=== PATIENT | female | born 2000 | race Caucasian/White ===

== ENCOUNTER 2021-05-17 10:35 | Inpatient (IN) | payer MEDICAID ==
[~2021-05-17] VITALS: Ht 165.1 cm; Wt 45.0 kg
[2021-05-17] MEDS ORDERED: diazepam 5mg tablet PO ONE (10:50)
[2021-05-17] MEDS ORDERED: venlafaxine XR 75mg capsule (Q24H) PO ONE (10:50)
--- NOTE | 2021-05-17 10:53 | NUR ---
STAFF CAN GIVE INFORMATION REGARDING PTS STATUS TO LILY WASSERMAN; (C) [phone]
--- NOTE | 2021-05-17 10:55 | NUR ---
PT PASSWORD IS: [employer]
[2021-05-17 11:11] LABS: MONOCYTES # (AUTO) 0.6 X10'3 (0-0.9); NEUTROPHILS # (AUTO) 5.4 X10'3 (1.8-7.7); WHITE BLOOD COUNT 8.1 X10'3 (4.5-11.0)
[2021-05-17 11:13] LABS: BASOPHILS % (AUTO) 0.4 % (0-1); EOSINOPHILS % (AUTO) 0 % (0-6); HEMATOCRIT 43.9 % (35.0-45.0); HEMOGLOBIN 14.8 g/dl (12.0-16.0); LYMPHOCYTES # (AUTO) 2.2 X10'3 (1.1-4.8); LYMPHOCYTES % (AUTO) 26.6 % (21-51); MEAN CORPUSCULAR HEMOGLOBIN 30.9 PG (27.0-31.0); MEAN CORPUSCULAR HGB CONC 33.6 g/dL (33.0-36.5); MEAN CORPUSCULAR VOLUME 91.8 FL (78-98); MONOCYTES % (AUTO) 7.2 % (2-12); NEUTROPHILS % (AUTO) 65.8 % (42-75); PLATELET COUNT 734 X10'3 (140-440); RED BLOOD COUNT 4.79 X10'6 (4.20-5.60); RED CELL DISTRIBUTION WIDTH 13.1 % (11.5-14.5)
[2021-05-17 11:27] LABS: ALANINE AMINOTRANSFERASE 27 U/L (12-78); ALBUMIN 4.9 G/DL (3.4-5.0); ALBUMIN/GLOBULIN RATIO 1.2 (1.1-1.5); ALKALINE PHOSPHATASE 99 IU/L (46-116); ANION GAP 12 (8-16); ASPARTATE AMINO TRANSFERASE 20 U/L (10-37); BILIRUBIN,TOTAL 1.5 MG/DL (0.1-1.0); BLOOD UREA NITROGEN 11 MG/DL (7-18); BUN/CREATININE RATIO 18.3 (6.6-38.0); CALCIUM 9.1 MG/DL (8.5-10.1); CHLORIDE 104 MMOL/L (99-107); GLUCOSE 97 MG/DL (70-104); POTASSIUM 3.9 MMOL/L (3.5-5.1); SODIUM 143 MMOL/L (135-145); TOTAL CARBON DIOXIDE 26.8 MMOL/L (24-32); eGFR > 90 ML/MIN
[2021-05-17 11:29] LABS: URINE HCG NEGATIVE (NEG)
[2021-05-17 11:31] LABS: COLOR,URINE STRAW (Yellow); UA COLLECTION TYPE CLN CATCH MIDSTREAM
[2021-05-17 11:32] LABS: CLARITY,URINE CLOUDY (Clear)
[2021-05-17 11:33] LABS: GLUCOSE, URINE NEGATIVE (Neg); KETONES,URINE NEGATIVE (Neg); LEUKOCYTE ESTERASE ,URINE TRACE (Neg); NITRITES, URINE POSITIVE (Neg); OCCULT BLOOD,URINE MODERATE (Neg); PROTEIN,URINE TRACE mg/dl (Neg); UROBILINOGEN,URINE 0.2 E.U/dL (0.2-1.0)
[2021-05-17 11:40] LABS: URINE AMPHETAMINE SCREEN NEGATIVE (Neg); URINE BARBITUATE SCREEN NEGATIVE (Neg); URINE BENZODIAZEPINES SCREEN NEGATIVE (Neg); URINE CANNABINOID SCREEN POSITIVE (Neg); URINE COCAINE SCREEN NEGATIVE (Neg); URINE METHADONE SCREEN NEGATIVE (Neg); URINE OPIATE SCREEN NEGATIVE (Neg); URINE PHENCYCLIDINE SCREEN NEGATIVE (Neg)
[2021-05-17 11:42] LABS: ETHANOL < 0.010 GM/DL (0.0-0.010)
[2021-05-17 11:44] LABS: SQUAMOUS EPITHELIAL CELL,UR MANY /LPF (FEW); TRANSITIONAL EPI CELLS,URINE FEW /HPF
[2021-05-17 11:45] LABS: RBC,URINE 0-2 /HPF (0-2)
[2021-05-17 11:46] LABS: BACTERIA,URINE 3+ /HPF (Neg); WBC CLUMPS,URINE FEW /HPF (NEGATIVE)
--- NOTE | 2021-05-17 19:30 | NUR ---
Pt considers Nay Liu her mother wants her present when [facility] evaluates her.
--- NOTE | 2021-05-17 20:09 | NUR ---
Pt resting quietly at this time. Visitor left about an hour ago.
[2021-05-17] MEDS ORDERED: diphenhydrAMINE 25mg capsule PO ONE (21:15)
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
--- NOTE | 2021-05-18 06:33 | NUR ---
Received patient sleeping comfortably, respirations even and unlabored.
[2021-05-18] MEDS ORDERED: GUAN1TAB PO (07:38)
[2021-05-18] MEDS ORDERED: VENL150C58 PO (07:38)
[2021-05-18] MEDS ORDERED: DIAZ5TAB5 PO (07:38)
--- NOTE | 2021-05-18 08:07 | NUR ---
Pt up eating breakfast, mother at bedside.
[2021-05-18] MEDS ORDERED: venlafaxine XR 75mg capsule (Q24H) PO SCH (08:46)
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
--- NOTE | 2021-05-18 11:34 | NUR ---
Pt sitting up in bed playing cards with "mom." Pt is calm.
--- NOTE | 2021-05-18 13:40 | NUR ---
Pt awake, calm. Pt's boyfriend and his mother at bedside. Pt ate minimal amount of her lunch.
--- NOTE | 2021-05-18 15:04 | NUR ---
Pt sitting up in bed coloring. Pt is plesant, but affect is incongruent with situation. Pt smiles during all questions and assessments. Assembly Worker will speak with provider regarding addtion of Ensure or protein shake to pt's diet (pt is lactose intolerant.)
[2021-05-18] MEDS ORDERED: ciprofloxacin 250mg tablet PO ONE (15:15)
--- NOTE | 2021-05-18 15:19 | NUR ---
Pt has UTI, received order for Cipro 500mg also received order for high protein Ensure.
--- NOTE | 2021-05-18 17:15 | NUR ---
Pt awake sitting in high fowlers position, coloring. No distress noted.
[2021-05-18] MEDS: lactose-reduced food (Ensure High Protein) 237ml bottle PO SCH (18:00)
--- NOTE | 2021-05-18 19:49 | NUR ---
The patient is pleasant and calm. She is expecting to transfer to [facility] later on tonight.
[2021-05-18] MEDS: lactobacillus rhamnosus 10,000 MMU CELLS/CAPSULE PO SCH (19:59)
[2021-05-18] MEDS ORDERED: NICOTINE POLACRILEX 2 MG LOZENGE BC PRN (20:05)
[2021-05-18] MEDS ORDERED: acetaminophen 325mg tablet PO PRN (20:05)
[2021-05-18] MEDS ORDERED: loperamide 2mg capsule PO PRN (20:05)
[2021-05-18] MEDS ORDERED: magnesium hydroxide 30ml (MOM) UD suspension PO PRN (20:05)
[2021-05-18] MEDS ORDERED: mag hydrox/Alum hydrox/simeth 30ml oral suspension PO PRN (20:05)
[2021-05-18 21:23] VITALS: BP 115/72
[2021-05-18] MEDS ORDERED: PRAZ5CAP2 PO (21:42)
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
[2021-05-18] MEDS: LORazepam 1 MG tablet PO PRN (21:47)
[2021-05-19] MEDS: traZODone 50mg tablet PO PRN ×2 (00:24→21:00)
[2021-05-19] MEDS: lactobacillus rhamnosus 10,000 MMU CELLS/CAPSULE PO SCH ×2 (07:21→21:00)
[2021-05-19] MEDS: acetaminophen 325mg tablet PO PRN (07:24)
[2021-05-19 08:00] VITALS: BP 101/69
[2021-05-19] MEDS ORDERED: guanFACINE 1 mg tablet PO SCH (08:00)
[2021-05-19] MEDS ORDERED: nicotine 21mg patch - 24 hr TD SCH (08:00)
[2021-05-19] MEDS: lactose-reduced food (Ensure High Protein) 237ml bottle PO SCH (08:29)
[2021-05-19 09:31] LABS: CHOL/HDL RATIO 2.6 (0.00-4.99); CHOLESTEROL 172 MG/DL (0-200); HDL CHOLESTEROL 65 MG/DL (35-60); LDL CHOLESTEROL 104 MG/DL (50-100); TRIGLYCERIDES 49 MG/DL (20-135)
[2021-05-19 09:43] LABS: HEMOGLOBIN A1C 5.2 % (4.5-6.2)
[2021-05-19] MEDS: ciprofloxacin 250mg tablet PO SCH ×2 (10:31→21:01)
--- NOTE | 2021-05-19 11:50 | NUR ---
Malnutrition Consult: Pt admit DX SI and hx suicide attempts, anorexia, and bulimia per EMR. BMI 16.5 via standing scaled wt this admit w/ no prior wt hx. Pt appears WD/WN per ER note. RD d/w RN who reports pt appears small in stature w/ no visible signs of muscle/fat wasting present and has not exhibited signs of anorexia/bulimia this admit. Pt PO 25-50% breakfast this AM w/ 100% ensure high protein ordered by . Current PO documented 100% breakfast this AM though error actually 25-50% per RN. MD agreeable w/ RD recs for ensure enlive ONS for additional kcals. Pt now to receive ensure enlive TIDWM instead of ensure high protein; dietary notified. Pt has normal strength, no edema/wounds, and no prior wt hx may maintain underweight status at baseline. Does not meet minimum malnutrition criteria at this time. Will monitor for further nutrition intervention needs this admit. Addendum: 05/19/21 at [address] Amended: Links added.
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
[2021-05-19] MEDS: lactose-reduced food (Ensure Enlive) - 237ml bottle PO SCH ×2 (13:04→17:59)
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
[2021-05-19 20:00] VITALS: BP 120/66
[2021-05-19] MEDS ORDERED: lithium carbonate 150mg capsule PO SCH (21:00)
[2021-05-19] MEDS: prazosin 1mg capsule PO SCH (21:00)
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
[2021-05-20] MEDS ORDERED: lurasidone 20mg tablet PO SCH (07:30)
[2021-05-20 08:00] VITALS: BP 109/74
[2021-05-20] MEDS: lactose-reduced food (Ensure Enlive) - 237ml bottle PO SCH ×3 (08:00→17:53)
--- NOTE | 2021-05-20 08:04 | NUR ---
Held skyler Montoya per Dr Greco's instructions.
[2021-05-20] MEDS: lactobacillus rhamnosus 10,000 MMU CELLS/CAPSULE PO SCH ×2 (08:15→20:56)
[2021-05-20] MEDS: LORazepam 1 MG tablet PO PRN (08:58)
[2021-05-20] MEDS: acetaminophen 325mg tablet PO PRN ×2 (09:00→21:12)
[2021-05-20] MEDS: ciprofloxacin 250mg tablet PO SCH ×2 (09:59→20:58)
--- NOTE | 2021-05-20 10:14 | NUR ---
Pt attended group today. We talked about reframing thoughts utilizing a picture where they had to write down what thoughts there were struggling with today. Patients then constructed Vision Pages/Collages with inspiring words and pictures to work toward rewire these thoughts into positive affirmations. Pt. engaged well in the group today. She jumped right into the exercise that was presented. She wrote down the thoughts she was having around how she feels she is a burden to those she loves due to her issues and that she missed her dad and sister. She worries about them and how they are doing. From there Pt. Was able to put together a collage with pictures and words that inspired her. She was excited to share her work with the group sharing how she was in process with attempting to change her thoughts. Her thought content and thought process was WNL. She was alert and oriented X 4. Her demeanor was calm and compliant. Tabatha Orozco LCSW
--- NOTE | 2021-05-20 13:18 | NUR ---
Property Management Accountant met w/pt, provided informed consent and engaged her in completing a psychosocial assessment. MSE A/O x4 TP-linear TC-focused on traumatic events of the past, SI, denies any plans, denies HI/AH/VH/delusions Mood-elevated Affect- incongruent w/current situation Bxs- cooperative & quite "open" lack safe boundaries Plan: Clinician will provide EMDR while pt is here. Anna Marcelo LCSW Addendum: 05/20/21 at 1322 by Anna Marcelo SS Amended: Links added.
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
--- NOTE | 2021-05-20 17:06 | NUR ---
Group Art Tx continued: Patient was stable and motivated before, during and after group. Patient was cheerful, animated and willing to risk and share her feeling opposite drawing and journaling. Her two opposites were Scared V.S. Confident. Her feeling opposites were related to relationship issues with a friend and her mother. Patient was interactive w/ her peers and has been spending much of her leisure time in the group room working on creative projects w/ her [facility] roomate. Ching Hawley M.A., [facility] #[id number] [facility], Art Therapist Addendum: 05/20/21 at 1709 by Ching Hawley SS Amended: Links added. Addendum: 05/20/21 at 1714 by Ching WARD Correction re: the relationship issues were more directed at her issues with PTSD her fears. Patient was able to address her support system she feels confident with. Ching Hawley M.A., [facility] #[id number] [facility], Art Therapist
[2021-05-20 19:00] VITALS: BP 102/73
[2021-05-20] MEDS: prazosin 1mg capsule PO SCH (20:56)
[2021-05-20] MEDS: traZODone 50mg tablet PO PRN ×2 (20:56→21:57)
[2021-05-20] MEDS ORDERED: lithium carbonate 150mg capsule PO SCH (21:00)
[2021-05-20] MEDS: hydrOXYzine 25 MG tablet PO PRN ×2 (21:10→21:57)
[2021-05-20] MEDS ORDERED: ondansetron 4mg rapidly disintigrating tab PO ONE (22:35)
[2021-05-20 22:42] VITALS: BP 104/64
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
[2021-05-21] MEDS: lactobacillus rhamnosus 10,000 MMU CELLS/CAPSULE PO SCH ×2 (07:45→20:45)
[2021-05-21] MEDS ORDERED: LORazepam 1 MG tablet PO ONE (07:45)
[2021-05-21 08:00] VITALS: BP 115/71
[2021-05-21] MEDS: lactose-reduced food (Ensure Enlive) - 237ml bottle PO SCH ×4 (08:16→18:23)
[2021-05-21] MEDS: ciprofloxacin 250mg tablet PO SCH ×2 (10:23→20:45)
--- NOTE | 2021-05-21 12:34 | NUR ---
1:1-EMDR Presenting Issues: Pt's assessment indicates pt's impaired by sxs associated w/C-PTSD (Complex-PTSD), and unstable attachment. Pt had agreed to try EMDR-Safe Protocol. Interventions: EMDR Phase 1 Clinician met w/pt and engage her in completing EMDR Pahse 1. Per data, pt longs for the security of a family, emotional intimacy with friends & herself. Pt hopes to be able to determine if it is safe to reconnect w/father. Clinician introduced strategies for scaling internal distress (0-10; 0=neutral/no distress & 10=most distress imaginable), engaged pt in practicing scaling her distress, instructed pt to use her calm breaths when distress is at a 5 to see if she can bring it down to a 4 or 3. For distress levels higher than a 5 or when the calm breaths was not helpful, pt will seek out her RN for additional support. Plan: We will complete Phase 1 & 2, and begin Phase 3 on Monday. Clinician will ask the weekend SW to check in w/pt and provide support for pt to process any distressing memories that she experiences outside of EMDR session. Anna Tapia Addendum: 05/21/21 at 1255 by Anna WARD Amended: Links added.
[2021-05-21 12:50] VITALS: BP 125/71
[2021-05-21] MEDS ORDERED: clonazePAM 0.5mg tablet PO ONE (12:50)
[2021-05-21] MEDS: acetaminophen 325mg tablet PO PRN (12:56)
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
[2021-05-21 20:00] VITALS: BP 99/67
[2021-05-21] MEDS: traZODone 50mg tablet PO PRN ×2 (20:45→22:37)
[2021-05-21] MEDS: clonazePAM 0.5mg tablet PO SCH (20:45)
[2021-05-21] MEDS: prazosin 1mg capsule PO SCH (20:45)
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
[2021-05-22 08:00] VITALS: BP 108/65
[2021-05-22] MEDS: lactose-reduced food (Ensure Enlive) - 237ml bottle PO SCH ×3 (08:00→18:00)
[2021-05-22] MEDS: lactobacillus rhamnosus 10,000 MMU CELLS/CAPSULE PO SCH ×2 (08:49→20:55)
[2021-05-22] MEDS: clonazePAM 0.5mg tablet PO SCH ×2 (08:50→20:55)
[2021-05-22] MEDS: ciprofloxacin 250mg tablet PO SCH ×2 (11:47→20:56)
[2021-05-22] MEDS ORDERED: venlafaxine XR 37.5mg cap (Q24H) PO ONE (12:20)
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
[2021-05-22] MEDS: acetaminophen 325mg tablet PO PRN (17:04)
[2021-05-22 19:35] VITALS: BP 116/64
[2021-05-22] MEDS: traZODone 50mg tablet PO PRN ×2 (20:56→22:11)
[2021-05-22] MEDS: prazosin 1mg capsule PO SCH (20:56)
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
[2021-05-23 08:00] VITALS: BP 105/67
[2021-05-23] MEDS: venlafaxine XR 75mg capsule (Q24H) PO SCH (08:39)
[2021-05-23] MEDS: lactobacillus rhamnosus 10,000 MMU CELLS/CAPSULE PO SCH ×2 (08:39→20:17)
[2021-05-23] MEDS: clonazePAM 0.5mg tablet PO SCH ×2 (08:40→20:17)
[2021-05-23] MEDS: lactose-reduced food (Ensure Enlive) - 237ml bottle PO SCH ×2 (08:46→13:00)
[2021-05-23] MEDS: ciprofloxacin 250mg tablet PO SCH ×2 (10:13→21:58)
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
--- NOTE | 2021-05-23 14:45 | NUR ---
Initial: Pt admit DX SI and hx suicide attempts, anorexia, and bulimia per EMR. Pt w/ variable intake on Regular diet though meeting needs. Avg intake 70% x 12 meals and 52% x 12 ONS. LBM 05/21 receiving routine Lactulose. No nutrition intervention implemented at this time, will continue to monitor. Recs: 1. Continue Regular diet as tolerated 2. Ensure Enlive TID per MD 3. Bowel care per rx 4. Weekly wts Addendum: 05/23/21 at [address] Amended: Links added.
[2021-05-23] MEDS: prazosin 1mg capsule PO SCH (20:17)
[2021-05-23 20:39] VITALS: BP 109/70
[2021-05-23] MEDS: traZODone 50mg tablet PO PRN (21:58)
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
[2021-05-24 08:00] VITALS: BP 98/72
[2021-05-24] MEDS: lactose-reduced food (Ensure Enlive) - 237ml bottle PO SCH ×3 (08:00→18:00)
[2021-05-24] MEDS: clonazePAM 0.5mg tablet PO SCH ×2 (08:10→21:32)
[2021-05-24] MEDS: lactobacillus rhamnosus 10,000 MMU CELLS/CAPSULE PO SCH ×2 (08:10→21:32)
[2021-05-24] MEDS: venlafaxine XR 75mg capsule (Q24H) PO SCH (08:10)
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
[2021-05-24] MEDS: ciprofloxacin 250mg tablet PO SCH (09:45)
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
[2021-05-24 20:00] VITALS: BP 114/85
[2021-05-24] MEDS ORDERED: traZODone 150mg tablet PO SCH (21:00)
[2021-05-24] MEDS: prazosin 1mg capsule PO SCH (21:32)
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
[2021-05-25 08:00] VITALS: BP 110/64
[2021-05-25] MEDS: lactose-reduced food (Ensure Enlive) - 237ml bottle PO SCH ×3 (08:00→18:00)
[2021-05-25] MEDS: lactobacillus rhamnosus 10,000 MMU CELLS/CAPSULE PO SCH ×2 (08:06→20:00)
[2021-05-25] MEDS: clonazePAM 0.5mg tablet PO SCH ×2 (08:07→21:35)
[2021-05-25] MEDS: venlafaxine XR 75mg capsule (Q24H) PO SCH (08:07)
[2021-05-25] MEDS: acetaminophen 325mg tablet PO PRN (12:34)
--- NOTE | 2021-05-25 14:15 | NUR ---
Pt. attended group today. We talked about Communication today focusing on how to utilize I messages. This Marketing Program Manager shared how to create an I message and then we practiced writing them on the board. We also did a drawing of their three favorite animals, the Pt. had to write out what characteristic they like about each animal and create a drawing of a new animal. Pt. engaged well in the group. Her mood was bright with a full range of affect. She was alert and oriented X 4. Her thought content and thought process was WNL. She shared an example of an I message and did a great job creating one for her situation that she is struggling with. She also engaged in the activity and shared her animal qualities with the group. She appears to enjoy socializing in the group and does a good job connecting with others and synthesizing the information. Tabatha Orozco LCSW
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
--- NOTE | 2021-05-25 16:46 | NUR ---
Art Tx Continued: Patient was able to attend the group following her individual session w/ her social service manager, Anna Diaz. Patient was able to follow all directives, freely expressing herself and completing her sentence completion as well. Patient was able to gather some insight from both her individual session and the art therapy. Her process noted " I am sad to leave behind my family ... I need to keep walking and not look behind." Patients art work reflected her current process and an ability to begin looking out at new options as she continues to heal from a traumatic history. Patient was interactive with other patients. Patient continues to reflect a positive attitude towards her treatment and future goals. *Please refer to the [facility] Case Notes for entire overview. Ching Hawley MA, DIVORCE LAWYER #[id number] [facility], Art Therapist Addendum: 05/25/21 at 1715 by Ching Hawley SS Amended: Links added.
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
[2021-05-25 19:57] VITALS: BP 112/71
[2021-05-25] MEDS: prazosin 1mg capsule PO SCH (21:34)
[2021-05-25] MEDS: traZODone 150mg tablet PO SCH (21:35)
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
[2021-05-26 07:26] VITALS: BP 113/67
[2021-05-26] MEDS: lactobacillus rhamnosus 10,000 MMU CELLS/CAPSULE PO SCH ×2 (07:51→20:07)
[2021-05-26] MEDS: clonazePAM 0.5mg tablet PO SCH ×2 (07:51→20:07)
[2021-05-26] MEDS: venlafaxine XR 75mg capsule (Q24H) PO SCH (07:52)
[2021-05-26] MEDS: lactose-reduced food (Ensure Enlive) - 237ml bottle PO SCH ×3 (08:22→18:20)
--- NOTE | 2021-05-26 09:36 | NUR ---
Pt. attended group today. We talked about how to recognize when you are in a Co-dependent relationship. The Pts. did a Checklist about what symptoms of codependency they may have. We discussed seven ways to avoid codependency. Pt. engaged well in the group. She was very interested in the topic and shared pertinent examples, she shared appropriately. Her thought content and thought process were WNL. She was alert and oriented X 4. She shared that she struggles the most with setting boundaries and saying no to people. She talked a lot about her relationship with her father. Her demeanor was calm and compliant. Her mood was bright with a full range of affect. She asked for the extra paperwork to do it for homework to bring back to group tomorrow. Tabatha Orozco LCSW
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
[2021-05-26 19:37] VITALS: BP 109/66
[2021-05-26] MEDS ORDERED: heparin, porcine 5000 units/ml vial SQ SCH (20:00)
[2021-05-26] MEDS: traZODone 150mg tablet PO SCH (20:06)
[2021-05-26] MEDS: prazosin 1mg capsule PO SCH (20:07)
--- NOTE | 2021-05-26 20:38 | NUR ---
New order for Heparin and protonix for patient ordered by Dr Brandt, reviewed with Dr Greco and he ordered to D/C meds.
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
[2021-05-27] MEDS ORDERED: pantoprazole 40mg Tablet.DR PO SCH (07:30)
[2021-05-27] MEDS: venlafaxine XR 75mg capsule (Q24H) PO SCH (07:51)
[2021-05-27] MEDS: lactobacillus rhamnosus 10,000 MMU CELLS/CAPSULE PO SCH ×2 (07:51→20:28)
[2021-05-27] MEDS: clonazePAM 0.5mg tablet PO SCH ×2 (07:52→20:29)
[2021-05-27 08:00] VITALS: BP 91/64
[2021-05-27] MEDS: lactose-reduced food (Ensure Enlive) - 237ml bottle PO SCH ×3 (08:00→18:03)
[2021-05-27 09:23] LABS: BASOPHILS % (AUTO) 0.2 % (0-1); EOSINOPHILS % (AUTO) 0 % (0-6); HEMATOCRIT 38.4 % (35.0-45.0); HEMOGLOBIN 13.1 g/dl (12.0-16.0); LYMPHOCYTES # (AUTO) 1.5 X10'3 (1.1-4.8); LYMPHOCYTES % (AUTO) 25.9 % (21-51); MEAN CORPUSCULAR HEMOGLOBIN 30.8 PG (27.0-31.0); MEAN CORPUSCULAR HGB CONC 34.2 g/dL (33.0-36.5); MEAN CORPUSCULAR VOLUME 90.3 FL (78-98); MEAN PLATELET VOLUME 6.1 FL (7.4-10.4); MONOCYTES # (AUTO) 0.5 X10'3 (0-0.9); MONOCYTES % (AUTO) 8.6 % (2-12); NEUTROPHILS # (AUTO) 3.8 X10'3 (1.8-7.7); NEUTROPHILS % (AUTO) 65.3 % (42-75); PLATELET COUNT 570 X10'3 (140-440); RED BLOOD COUNT 4.26 X10'6 (4.20-5.60); RED CELL DISTRIBUTION WIDTH 12.4 % (11.5-14.5); WHITE BLOOD COUNT 5.8 X10'3 (4.5-11.0)
[2021-05-27 09:39] LABS: ALANINE AMINOTRANSFERASE 18 U/L (12-78); ALBUMIN 4.2 G/DL (3.4-5.0); ALBUMIN/GLOBULIN RATIO 1.1 (1.1-1.5); ALKALINE PHOSPHATASE 70 IU/L (46-116); ANION GAP 7 (8-16); ASPARTATE AMINO TRANSFERASE 16 U/L (10-37); BILIRUBIN,TOTAL 1.5 MG/DL (0.1-1.0); BLOOD UREA NITROGEN 17 MG/DL (7-18); BUN/CREATININE RATIO 20.5 (6.6-38.0); CALCIUM 8.6 MG/DL (8.5-10.1); CHLORIDE 105 MMOL/L (99-107); CREATININE 0.83 MG/DL (0.40-0.90); GLUCOSE 101 MG/DL (70-104); POTASSIUM 3.9 MMOL/L (3.5-5.1); SODIUM 143 MMOL/L (135-145); TOTAL CARBON DIOXIDE 30.6 MMOL/L (24-32); TOTAL PROTEIN 7.9 G/DL (6.4-8.2); eGFR 87 ML/MIN
--- NOTE | 2021-05-27 14:09 | NUR ---
We talked about Boundaries, the different kinds and how to communicate our boundaries to others. Each pt. did a written activity to help them identify a person/situation they struggle to set boundaries in. Pt. engaged well in the group. She completed the written activity. She shared that she had had a distressing conversation last night with her family. They got her 6 year old niece to call so she would take the call. Then her dad and sister where prompting her niece with what to say to Pt. This was very upsetting for Pt as she has told her family not to contact her. She does not feel safe with them and that they have her best interests at heart. Pt. appeared angry today in her demeanor but it was directed toward her family. She was able to process her feelings in group which appeared helpful to her. She was alert and oriented X 4. Her thought content and thought process was WNL. Tabatha Orozco LCSW
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
[2021-05-27 20:00] VITALS: BP 103/68
[2021-05-27] MEDS: prazosin 1mg capsule PO SCH (20:28)
[2021-05-27] MEDS: traZODone 150mg tablet PO SCH (20:28)
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
[2021-05-28 08:00] VITALS: BP 108/68
[2021-05-28] MEDS: lactose-reduced food (Ensure Enlive) - 237ml bottle PO SCH ×3 (08:55→17:47)
[2021-05-28] MEDS: clonazePAM 0.5mg tablet PO SCH (08:55)
[2021-05-28] MEDS: lactobacillus rhamnosus 10,000 MMU CELLS/CAPSULE PO SCH ×2 (08:55→20:16)
[2021-05-28] MEDS: venlafaxine XR 75mg capsule (Q24H) PO SCH (08:55)
[2021-05-28 14:46] LABS: CLARITY,URINE SLIGHTLY CLOUDY (Clear); COLOR,URINE YELLOW (Yellow); GLUCOSE, URINE NEGATIVE (Neg); KETONES,URINE NEGATIVE (Neg); PH,URINE 7.5 (4.8-8.0); UA COLLECTION TYPE CLN CATCH MIDSTREAM
[2021-05-28 14:47] LABS: BACTERIA,URINE 2+ /HPF (Neg); LEUKOCYTE ESTERASE ,URINE NEGATIVE (Neg); MUCUS STRANDS NONE SEEN /LPF (Neg); NITRITES, URINE NEGATIVE (Neg); OCCULT BLOOD,URINE NEGATIVE (Neg); PROTEIN,URINE TRACE mg/dl (Neg); RBC,URINE NONE SEEN /HPF (0-2); SQUAMOUS EPITHELIAL CELL,UR MODERATE /LPF (FEW); UROBILINOGEN,URINE 0.2 E.U/dL (0.2-1.0); WBC,URINE 0-4 /HPF (0-4)
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
[2021-05-28] MEDS ORDERED: LORazepam 1 MG tablet PO ONE (17:45)
[2021-05-28 20:00] VITALS: BP 117/75
[2021-05-28] MEDS: traZODone 150mg tablet PO SCH (20:16)
[2021-05-28] MEDS: clonazePAM 1mg tablet PO SCH ×2 (20:16→20:17)
[2021-05-28] MEDS: prazosin 1mg capsule PO SCH (20:16)
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
[2021-05-29] MEDS: lactobacillus rhamnosus 10,000 MMU CELLS/CAPSULE PO SCH ×2 (07:26→19:46)
[2021-05-29] MEDS: clonazePAM 1mg tablet PO SCH ×3 (07:26→20:34)
[2021-05-29] MEDS: venlafaxine XR 75mg capsule (Q24H) PO SCH (07:26)
[2021-05-29 08:00] VITALS: BP 114/70
[2021-05-29] MEDS: lactose-reduced food (Ensure Enlive) - 237ml bottle PO SCH ×3 (08:00→17:44)
[2021-05-29] MEDS: fluconazole 100mg tablet PO SCH (13:32)
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
[2021-05-29] MEDS: lurasidone 20mg tablet PO SCH (17:22)
[2021-05-29 19:46] VITALS: BP 117/83
[2021-05-29] MEDS: traZODone 150mg tablet PO SCH (20:33)
[2021-05-29] MEDS: prazosin 1mg capsule PO SCH (20:34)
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
[2021-05-30] MEDS: lactose-reduced food (Ensure Enlive) - 237ml bottle PO SCH ×3 (08:00→18:00)
[2021-05-30 08:02] VITALS: BP 94/58
[2021-05-30] MEDS: lactobacillus rhamnosus 10,000 MMU CELLS/CAPSULE PO SCH ×2 (08:17→09:02)
[2021-05-30] MEDS: venlafaxine XR 75mg capsule (Q24H) PO SCH (09:02)
[2021-05-30] MEDS: clonazePAM 1mg tablet PO SCH ×3 (09:02→20:15)
[2021-05-30] MEDS: fluconazole 100mg tablet PO SCH (09:03)
[2021-05-30] MEDS: acetaminophen 325mg tablet PO PRN (11:34)
--- NOTE | 2021-05-30 13:48 | NUR ---
Reassessment: Pt w/ variable intake on Regular diet though meeting needs. Avg intake 50-75% of meals and mostly 100% of ONS. LBM 05/28. No nutrition intervention implemented at this time, will continue to monitor. Recs: 1. Continue Regular diet as tolerated 2. Ensure Enlive TID per MD 3. Bowel care per rx 4. Weekly wts Addendum: 05/30/21 at [address] Amended: Links added.
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
[2021-05-30] MEDS: miconazole nitrate 28.35 gm derm cream TP SCH ×2 (17:00→20:00)
[2021-05-30] MEDS: lurasidone 20mg tablet PO SCH (17:38)
[2021-05-30 18:51] LABS: BASOPHILS % (AUTO) 0.2 % (0-1); EOSINOPHILS % (AUTO) 0 % (0-6); HEMATOCRIT 36.1 % (35.0-45.0); HEMOGLOBIN 12.8 g/dl (12.0-16.0); LYMPHOCYTES # (AUTO) 2.1 X10'3 (1.1-4.8); LYMPHOCYTES % (AUTO) 23.7 % (21-51); MEAN CORPUSCULAR HEMOGLOBIN 31.7 PG (27.0-31.0); MEAN CORPUSCULAR HGB CONC 35.5 g/dL (33.0-36.5); MEAN CORPUSCULAR VOLUME 89.3 FL (78-98); MEAN PLATELET VOLUME 6.4 FL (7.4-10.4); MONOCYTES # (AUTO) 0.7 X10'3 (0-0.9); MONOCYTES % (AUTO) 8.2 % (2-12); NEUTROPHILS % (AUTO) 67.9 % (42-75); PLATELET COUNT 592 X10'3 (140-440); RED BLOOD COUNT 4.04 X10'6 (4.20-5.60); RED CELL DISTRIBUTION WIDTH 12.1 % (11.5-14.5); WHITE BLOOD COUNT 8.9 X10'3 (4.5-11.0)
[2021-05-30 19:29] VITALS: BP 119/72
[2021-05-30] MEDS: prazosin 1mg capsule PO SCH (20:15)
[2021-05-30] MEDS: traZODone 150mg tablet PO SCH (20:16)
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
[2021-05-31 08:00] VITALS: BP 133/83
[2021-05-31] MEDS: lactose-reduced food (Ensure Enlive) - 237ml bottle PO SCH ×2 (08:00→13:43)
[2021-05-31] MEDS: lactobacillus rhamnosus 10,000 MMU CELLS/CAPSULE PO SCH (08:25)
[2021-05-31] MEDS: venlafaxine XR 75mg capsule (Q24H) PO SCH (08:25)
[2021-05-31] MEDS: clonazePAM 1mg tablet PO SCH (08:25)
[2021-05-31] MEDS: miconazole nitrate 28.35 gm derm cream TP SCH (08:34)
[2021-05-31] MEDS ORDERED: fluconazole 150mg tablet PO ONE (09:00)
[2021-05-31] MEDS ORDERED: CLON1TAB12 PO ×2 (13:32→15:11)
[2021-05-31] MEDS ORDERED: VENL150T3 PO (13:32)
[2021-05-31] MEDS ORDERED: PRAZ1CAP5 PO (13:32)
[2021-05-31] MEDS ORDERED: TRAZ-251 PO (13:32)
[2021-05-31] MEDS ORDERED: LURA40TA3 PO (13:41)
--- NOTE | 2021-05-31 14:09 | NUR ---
Pt attended group today. Today we talked about the definition of resiliency, the ways to build resiliency and how to bounce back. They took a change resiliency test to see how they are able to manage change and discussed coping skills to help while navigating change. Pt. was in an upbeat mood today. She was alert and oriented X 4. Her thought content and thought process was WNL. She engaged well in the group discussion and activity. She reported that she struggles with change especially recently as she has dealt with moving, a break up and losing her therapist all within 2 months. She was able to share what coping skills she utilizes, she reported humor for her is a big help to navigate life's ups and downs. Her overall demeanor was calm, pleasant and compliant. Tabatha Orozco, WYATT
--- NOTE | 2021-05-31 16:48 | NUR ---
Patient discharged from [facility] and escorted from unit at approximately 1645. She was picked up by a friend in personal vehicle. Discharge instructions received and verbalized understanding. Patients belongings inventoried and returned to her. Patient is calm, cooperative, A&O x4, with no complaints or apparent distress. Patient verbalized understanding of discharge plan and medications. She left the hospital without incident.
--- NOTE | 2021-06-07 08:47 | NUR ---
Post D/C Note Pt's mom called, pt was only d/c w/14-days of meds and still has not been able to access a post-hospital appointment w/[facility]. Clinician texted Dr. Greco, requested that he provide a refill for pt and that he returns her Disability Insuance paperwork so she can file it. Physician will address these issues today. Clinician had t/c with [facility] DCP requesting someone reach out to pt and provide a post-hospital follow-up. Per t/c someone will contact pt. Anna Marcelo L:CLAUDIO Addendum: 06/07/21 at 0851 by Anna Marcelo Amended: Links added.
== END 2021-05-31 16:45 | disposition home or self-care (01) | DRG 753 ==
LOC: ER 10:35 → EEVIPCON 05-18 17:10 → ADULT MH 05-18 17:10
PROVIDERS: ADMIT Psychiatry & Neurology Psychiatry; ATTEND Psychiatry & Neurology Psychiatry
DX: F31.81 Bipolar II disorder (principal); R45.851 Suicidal ideations; R00.0 Tachycardia, unspecified; E86.0 Dehydration; B37.3 Candidiasis of vulva and vagina; D75.839 Thrombocytosis, unspecified; F12.90 Cannabis use, unspecified, uncomplicated; F43.10 Post-traumatic stress disorder, unspecified; F41.9 Anxiety disorder, unspecified; Z20.822 Contact with and (suspected) exposure to COVID-19; F42.9 Obsessive-compulsive disorder, unspecified; Z59.00 Homelessness unspecified; Z91.410 Personal history of adult physical and sexual abuse; Z91.51 Personal history of suicidal behavior; Z91.52 Personal history of nonsuicidal self-harm; Z91.011 Allergy to milk products; Z91.018 Allergy to other foods
CPT/HCPCS: 36415; 80053; 80061; 80305; 80320; 81001; 81025; 83036; 84443; 85025; 87081; 87088; 87635; 93005; 99285; C9803; J1644; Q0163; Q0177

== ENCOUNTER 2021-07-06 16:30 | Emergency (ER) | payer MEDICAID ==
[~2021-07-06] VITALS: Ht 165.1 cm; Wt 45.5 kg
[~2021-07-06 16:30] MED LIST: LURA40TA3 PO; PRAZ1CAP5 PO; TRAZ-251 PO; VENL150T3 PO
[2021-07-06 16:39] VITALS: BP 126/93
[2021-07-06] MEDS ORDERED: diphenhydrAMINE 50 mg/ml inj IV ONE (16:45)
[2021-07-06] MEDS ORDERED: benztropine 1 mg/ml 2ml ampule IV ONE (16:45)
[2021-07-06] MEDS ORDERED: normal saline 1000ML IV soln IVB ONE (16:45)
[2021-07-06] MEDS ORDERED: diphenhydrAMINE 50 mg/ml inj IM ONE (16:55)
--- NOTE | 2021-07-06 17:30 | NUR ---
PT REPORTS HER JAW HAS STOPPED CLENCHING AND NOW JAW IS JUST SORE.
== END 2021-07-06 18:32 | disposition home or self-care (01) ==
LOC: ER 16:30
DX: G24.09 Other drug induced dystonia (principal); T43.595A Adverse effect of other antipsychotics and neuroleptics, initial encounter; Z79.899 Other long term (current) drug therapy; Z91.018 Allergy to other foods; Z91.011 Allergy to milk products; Y92.9 Unspecified place or not applicable
CPT/HCPCS: 96372; 99283; J1200

== ENCOUNTER 2021-07-14 12:40 | Emergency (ER) | payer MEDICAID ==
[~2021-07-14] VITALS: Ht 165.1 cm; Wt 45.5 kg
[2021-07-14 13:15] VITALS: BP 123/78
[2021-07-14] MEDS ORDERED: LIDOcaine 1% W/epiNEPHrine 1:200,000 10ml vial IJ ONE (13:45)
[2021-07-14] MEDS ORDERED: LIDOcaine/epinephrine/tetracaine TOPICAL sol 3 ML syringe TOP ONE (13:45)
[2021-07-14] MEDS ORDERED: bacitracin 15gm ointment TP ONE (13:45)
[2021-07-14] MEDS ORDERED: tetanus & diphtheria toxoid (Td) vaccine 0.5ml IMVAC ONE (13:45)
[2021-07-14] MEDS ORDERED: LIDOcaine 1% W/epiNEPHrine 1:100,000 20ml vial IJ ONE (13:50)
[2021-07-14] MEDS ORDERED: CEPH500C2 PO (14:01)
[2021-07-14] MEDS ORDERED: TETanus/Pertussis (Acell)/Diphther VAC/PF (Tdap-Adult) 0.5ml syringe IMVAC ONE (14:16)
[2021-07-20] MEDS ORDERED: VENL150C58 PO (09:30)
[2021-07-20] MEDS ORDERED: HYDR50CA5 PO (09:30)
== END 2021-07-14 14:46 | disposition home or self-care (01) ==
LOC: ER 12:41
DX: S61.411A Laceration without foreign body of right hand, initial encounter (principal); S64.91XA Injury of unspecified nerve at wrist and hand level of right arm, initial encounter; F41.9 Anxiety disorder, unspecified; F32.9 Major depressive disorder, single episode, unspecified; Z91.018 Allergy to other foods; Z79.2 Long term (current) use of antibiotics; Z79.899 Other long term (current) drug therapy; W26.0XXA Contact with knife, initial encounter; Y93.89 Activity, other specified; Y92.89 Other specified places as the place of occurrence of the external cause; Y99.8 Other external cause status
CPT/HCPCS: 12001; 90715; 99283

== ENCOUNTER 2021-07-23 06:17 | Day surgery (SDC) | payer MEDICAID ==
[2021-07-20 09:35] LABS: BASOPHILS % (AUTO) 0.5 % (0-1); EOSINOPHILS % (AUTO) 0.2 % (0-6); LYMPHOCYTES # (AUTO) 1.5 X10'3 (1.1-4.8); MEAN CORPUSCULAR HGB CONC 34.2 g/dL (33.0-36.5); MEAN CORPUSCULAR VOLUME 90.5 FL (78-98); MEAN PLATELET VOLUME 5.9 FL (7.4-10.4); MONOCYTES # (AUTO) 0.6 X10'3 (0-0.9); MONOCYTES % (AUTO) 8.4 % (2-12); NEUTROPHILS # (AUTO) 4.8 X10'3 (1.8-7.7); NEUTROPHILS % (AUTO) 68.9 % (42-75); PRE OP HEMATOCRIT 39.2 % (35.0-45.0); PRE OP HEMOGLOBIN 13.4 g/dL (12.0-16.0); PRE OP PLATELET COUNT 570 X10'3 (140-440); RED BLOOD COUNT 4.33 X10'6 (4.20-5.60); RED CELL DISTRIBUTION WIDTH 12.6 % (11.5-14.5)
[2021-07-20 09:59] LABS: HCG SERUM QL NEGATIVE
[~2021-07-23] VITALS: Ht 165.1 cm; Wt 47.6 kg
[~2021-07-23 06:17] MED LIST changes: +HYDR50CA5 PO; -LURA40TA3 PO; -PRAZ1CAP5 PO; -TRAZ-251 PO; +VENL150C58 PO; -VENL150T3 PO; +cefazolin/dext.iso 2gm/50ml IV ONE; +famotidine 20mg tablet PO ONE; +ringers solution, lacted 1,000 ML IV SCH
[2021-07-23 06:25] VITALS: BP 96/64
[2021-07-23] MEDS ORDERED: BUPIVAcaine/PF 2.5mg/ml (0.25%) 10ml vial ONE (06:42)
[2021-07-23] MEDS ORDERED: morphine 2 MG/ML inj. syringe IV PRN (07:20)
[2021-07-23] MEDS ORDERED: hydrALAZINE 20mg/ml inj. IV PRN (07:20)
[2021-07-23] MEDS ORDERED: labetalol 20mg/4ml (5mg/ml) syringe IV PRN (07:20)
[2021-07-23] MEDS ORDERED: morphine 4 MG/ML inj SYRINge IV PRN (07:20)
[2021-07-23] MEDS ORDERED: ondansetron/PF 4mg/2ml inj IV PRN (07:20)
[2021-07-23] MEDS ORDERED: fentaNYL/PF 50MCG/1 ML 2ML syringe IV PRN ×2 (07:20)
[2021-07-23] MEDS ORDERED: ringers solution, lacted 1,000 ML IV SCH (07:20)
[2021-07-23] MEDS ORDERED: LIDOcaine 0.5% (5mg/ml) 50ml vial ONE ×2 (07:21→10:28)
[2021-07-23] MEDS ORDERED: midazolam 1 mg/ML 2ml injection ONE (10:21)
[2021-07-23] MEDS ORDERED: fentaNYL/PF 50MCG/1 ML 2ML syringe ONE (10:21)
[2021-07-23 11:15] VITALS: BP 108/72
--- NOTE | 2021-07-23 11:15 | NUR ---
Received from OR via MAR , accompanied by Anesthesiologist ALLISON and report given by Anesthesiolgist. PATIENT WITH 20G PIV IN LEFT UE RUNNING LR AT 100. DENIES PAIN. SPLINT TO RIGHT UE THAT IS CDI. VSS. Addendum: 07/23/21 at 1122 by Amor Anderson RN, RN Amended: Links added.
[2021-07-23 11:20] VITALS: BP 115/71
[2021-07-23 11:30] VITALS: BP 113/78
[2021-07-23 11:40] VITALS: BP 105/72
--- NOTE | 2021-07-23 11:55 | NUR ---
ALL DISCHARGE CRITERIA HAS BEEN MET. VSS, PAIN AT A TOLERABLE LEVEL, VOIDING AND ABLE TO SAFELY AMBULATE AND TRANSFER SELF. IV TAKEN OUT WITHOUT ANY COMPLICATIONS. ALL DISCHARGE INSTRUCTIONS COVERED WITH PATIENT AND ALL QUESTIONS ANSWERED. PATIENT TAKEN OUT VIA WHEELCHAIR TO PERSONAL VEHICLE WHERE FAMILY/FRIEND DROVE PATIENT HOME. OUT WITH SIG OTHER TO HOME. VSS. DENIES PAIN. Addendum: 07/23/21 at 1225 by Amor Anderson RN, RN Amended: Links added.
== END 2021-07-23 11:55 | disposition home or self-care (01) ==
LOC: PAS 06:17
PROVIDERS: ATTEND Orthopaedic Surgery Hand Surgery
DX: S64.490A Injury of digital nerve of right index finger, initial encounter (principal); F43.10 Post-traumatic stress disorder, unspecified; F31.9 Bipolar disorder, unspecified; F41.9 Anxiety disorder, unspecified; Z79.899 Other long term (current) drug therapy; Z20.822 Contact with and (suspected) exposure to COVID-19; Z87.891 Personal history of nicotine dependence; W26.0XXA Contact with knife, initial encounter; Y93.89 Activity, other specified; Y92.89 Other specified places as the place of occurrence of the external cause; Y99.8 Other external cause status
CPT/HCPCS: 36415; 64831; 82948; 84703; 85025; J0690; J2250; J3010; J3490; J7030; J7120; U0003; U0005; Z7506; Z7508; Z7512; A4215; A4618; A7000